=== PATIENT | male | born 1940 | race Caucasian/White ===

== ENCOUNTER 2021-03-21 07:45 | Emergency (ER) | payer OTHER, BC ==
[~2021-03-21] VITALS: Ht 180.3 cm; Wt 86.2 kg
--- NOTE | ~2021-03-21 | EMS ---
[address] [address] EMS Patient Care Report Name: ADDISON RUIZ Room #: DEP BRIAN Ryan#: [id number] Admission: 03/21/21 Attend Phys: Discharge: 03/21/21 Date of : 42 Report #: [id number] THIS REPORT FOR: //name// Report Transmitted: 03/21/2021 12:22 EMS Care Summary [facility] MED-ACT Incident [id number] @ 03/21/2021 07:16 Incident [address] [place] [address] Patient ADDISON RUIZ Male, 80 Years 1940 Patient Address [address] [place] [address] Patient History Hypertension (HTN),Hyperlipidemia, Patient Allergies No known allergies, Patient Medications Atorvastatin, Potassium, Losartan, Chief Complaint Bleeding from leg. Disposition Transported No Lights/[place] Dispatch Reason Hemorrhage/Laceration Transported To [facility] Narrative Arrived to find a 80 yr old alert male patient sitting up outside on his front step in the care of E31 with a bandage on his left lower leg in the care of E31 in no obvious acute distress. Patient reports this morning he had just taken a shower and put his socks on. When the patient was putting his pants on he [facility] [address] [place] [address] EMS Patient Care Report Name: ADDISON RUIZ Room #: DEP ER Shelby#: [id number] Admission: 03/21/21 Attend Phys: Discharge: 03/21/21 Date of : 42 Report #: [id number] noticed he was bleeding through his sock. Patient states he was bleeding from a spot on his leg. Patient tried to control the bleeding with cotton balls and then paper towels and when neither of the two of them controlled the bleeding he called 9-1-1. E31 stated there was a small spot on his lower leg that was spurting blood upon their arrival and then they applied a dressing. A: See assessment tab. Physical exam, vital signs, and patient's wound was bandaged prior to our arrival. Care was transferred. Patient was able to stand and sit on the cot. Moved to the unit. En route to [place]. Vital signs were monitored en route to [facility]. Patient's bleeding remained controlled during transport. Patient rested on the cot during transport. We contacted [place] on the [employer] radio. Patient was alert with stable vital signs and moving all of his extremities upon arrival at [facility]. Patient care was transferred to an ED RN in room 2 at [place]. Patient was able to stand up and walk into the hospital room and sit on the bed. Patient requested ambulance transport to [facility]. Patient did not have his medical cards with him so he was unable to provide the membership numbers. Initial Vitals @07:40P: 81,R: 16,BP: 120/84,Pain: 0/10,GCS: 15,SpO2: 94,Revised Trauma: 12, @PTAP: 80,R: 16,BP: 138/90,Pain: 0/10,GCS: 15,Revised Trauma: 12, @07:34P: 78,R: 16,BP: 135/83,GCS: 15,Temp: 98F,SpO2: 94,Revised Trauma: 12, Assessments @07:30MENTAL:Person Oriented,Time Oriented,Place Oriented,Event Oriented,SKIN:HEENT:LUNG SOUNDS:ABDOMEN:PELVIS//GI:EXTREMITIES:Left Leg: Other,Left Arm: No Abnormalities,Right Arm: No Abnormalities,Right Leg: No Abnormalities,PULSE:Radial: 2+ Normal,NEURO: Impression Hemorrhage Procedures @PTABleeding ControlResponse: ImprovedSucceeded@07:40Surgical Mask on PatientResponse: Unchanged 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 [address] [place] [address] EMS Patient Care Report Name: ADDISON RUIZ Room #: DEP [place]#: [id number] Admission: 03/21/21 Attend Phys: Discharge: 03/21/21 Date of : 42 Report #: [id number] 07:14,Call Received 07:14,Psap Call 07:16,Dispatched 07:17,En Route 07:26,On Scene 07:27,At Patient 07:34,BP: 135/83 M,PULSE: 78,RR: 16 R,SPO2: 94 Ox,ETCO2: ,BG: ,PAIN: ,GCS: 15, 07:34,Depart Scene 07:40,Surgical Mask on Patient,Response: Unchanged 07:40,BP: 120/84 M,PULSE: 81,RR: 16 R,SPO2: 94 Ox,ETCO2: ,BG: ,PAIN: 0,GCS: 15, 07:41,At Destination 07:52,Call Closed Disclaimer v1.1 Copyright 2020 [employer] This EMS Care Summary contains data elements from the applicable legal record (which may be displayed differently). It is designed to provide pertinent information for the following purposes: continuity of care, clinical quality, and state data reporting. The complete legal record is available to ED staff and administrators of the receiving hospital in [employer]'s Patient Tracker. All data is provided "as is."
[2021-03-21 07:46] VITALS: BP 126/68
== END 2021-03-21 08:39 | disposition home or self-care (01) ==
LOC: ER 07:45
DX: I83.228 Varicose veins of left lower extremity with both ulcer of other part of lower extremity and inflammation (principal); L97.828 Non-pressure chronic ulcer of other part of left lower leg with other specified severity; I10 Essential (primary) hypertension; E78.00 Pure hypercholesterolemia, unspecified; Z96.642 Presence of left artificial hip joint